=== PATIENT | female | born 1980 | race Caucasian/White ===

== ENCOUNTER 2017-06-22 01:01 | Inpatient (IN) ==
[2017-06-22] MEDS ORDERED: ACETAMINOPHEN 325 MG TABLET PO PRN (02:51)
[2017-06-22] MEDS: fentaNYL 50 MCG/HR PATCH TRANSDERM SCH (05:33)
[2017-06-22 06:49] LABS: Basophils % 0.3 % (0.0-0.8); Eosinophils # 0.1 10*3/uL (0.0-0.87); Eosinophils % 2.3 % (0.00-10.9); Hematocrit 23.7 VOL% (35.7-47.0); Hemoglobin 7.3 GM/DL (12.0-16.0); Immature Granulocytes % 1.3 %; Immature Granulocytes Absolute 0.05 #; Lymphocytes # 1.2 10*3/uL (1.4-4.0); Lymphocytes % 30.1 % (21.3-54.2); Mean Corpuscular HGB Conc 30.8 GM/DL (32-36); Mean Corpuscular Hemoglobin 26 PG (27-34); Monocytes # 0.4 10*3/uL (0.11-0.8); Monocytes % 10.7 % (1.7-12.7); Neutrophils # 2.2 10*3/uL (1.4-7.4); Neutrophils % 55.3 % (38.7-73.9); Red Blood Count 2.82 MC/CUMM (3.8-5.5); Red Cell Distribution Width 18.5 % (9.3-17.3); White Blood Count 3.9 T/CUMM (4-12)
[2017-06-22 07:21] LABS: Calcium 7.3 MG/DL (8.5-10.1); Osmolality,Calculated 279.4 MOS/KG (273-304); Potassium 3.8 MMOL/L (3.5-5.1)
[2017-06-22 07:56] LABS: Platelet Count 54 T/CUMM (130-400)
[2017-06-22] MEDS ORDERED: PIPERACILLIN/TAZOBACTAM 3,375 MG in SODIUM CHLORIDE 0.9% 100 ML IV SCH (08:00)
[2017-06-22 08:01] LABS: Band Neutrophils 5 % (0-10); Eosinophils 4 % (0-10); Hypochromasia 1+; Lymphocytes 24 % (20-55); Microcytosis 1+; Segmented Neutrophils 61 % (50-85); Total Cells Counted 100
[2017-06-22 08:02] LABS: Elliptocytes Few; Platelet Estimate Decreased; Tear Drop Cells Slight
[2017-06-22] MEDS ORDERED: GLATIRAMER ACETATE 40 MG SQ SCH (09:00)
[2017-06-22] MEDS: PANTOPRAZOLE 40 MG TABLET PO SCH (09:56)
[2017-06-22] MEDS ORDERED: SODIUM CHLORIDE 0.9% 1,000 ML IV PRN (10:27)
[2017-06-22] MEDS: MORPHINE 10 MG/5 ML UDCUP PO PRN ×2 (11:00→22:56)
[2017-06-22] MEDS ORDERED: DEXTROSE 10% 1,000 ML IV PRN (13:08)
[2017-06-22] MEDS ORDERED: DEXTROSE 50% 25 GM/50 ML VIAL IV PRN (13:08)
[2017-06-22] MEDS ORDERED: GLUCAGON 1 MG VIAL IM PRN (13:08)
[2017-06-22] MEDS: CHLORHEXIDINE 4% SOLN 118 ML BOTTLE TOP SCH (13:48)
[2017-06-22] MEDS: VANCOMYCIN INJ 750 MG in SODIUM CHLORIDE 0.9% 250 ML IV SCH (15:40)
[2017-06-22] MEDS: LIDOCAINE 5% PATCH TRANSDERM SCH (15:51)
[2017-06-22] MEDS ORDERED: TRACE ELEMENTS (5) 1 ML, MULTIVITAMIN INJ 10 ML in AMINO ACIDS/DEXT/LYTES 4.25-5% 2,000 ML IV SCH (17:00)
[2017-06-22] MEDS: CEFEPIME 2,000 MG in SYRINGE 1 EACH IV SCH (17:10)
[2017-06-22] MEDS: FAT EMULSION 20% 250 ML IV SCH (17:23)
[2017-06-22] MEDS ORDERED: GENTAMICIN INJ 100 MG in PREMIX 1 EACH IV ONE (21:00)
[2017-06-22] MEDS: GLATIRAMER ACETATE 40 MG SQ SCH (21:35)
[2017-06-23] MEDS: CEFEPIME 2,000 MG in SYRINGE 1 EACH IV SCH ×3 (01:20→16:41)
[2017-06-23] MEDS: VANCOMYCIN INJ 750 MG in SODIUM CHLORIDE 0.9% 250 ML IV SCH ×2 (04:51→16:46)
[2017-06-23 06:16] LABS: Basophils % 0.2 % (0.0-0.8); Eosinophils # 0.3 10*3/uL (0.0-0.87); Eosinophils % 4.6 % (0.00-10.9); Hematocrit 30.6 VOL% (35.7-47.0); Immature Granulocytes % 2.4 %; Immature Granulocytes Absolute 0.14 #; Lymphocytes # 1.8 10*3/uL (1.4-4.0); Lymphocytes % 29.9 % (21.3-54.2); Mean Corpuscular HGB Conc 32.4 GM/DL (32-36); Mean Corpuscular Hemoglobin 26 PG (27-34); Mean Corpuscular Volume 81.2 FL (87-102); Monocytes % 16.1 % (1.7-12.7); Neutrophils # 2.8 10*3/uL (1.4-7.4); Neutrophils % 46.8 % (38.7-73.9); Platelet Count 59 T/CUMM (130-400); Red Blood Count 3.77 MC/CUMM (3.8-5.5); Red Cell Distribution Width 17.7 % (9.3-17.3); White Blood Count 5.9 T/CUMM (4-12)
[2017-06-23 06:26] LABS: Hemoglobin 9.9 GM/DL (12.0-16.0)
[2017-06-23 06:54] LABS: Band Neutrophils 3 % (0-10); Burr Cells Slight; Eosinophils 7 % (0-10); Hypochromasia 1+; Lymphocytes 24 % (20-55); Ovalocytes Slight; Platelet Estimate Decreased; Segmented Neutrophils 54 % (50-85); Total Cells Counted 100
[2017-06-23 06:55] LABS: Giant Platelets Few; Microcytosis 1+
[2017-06-23 07:41] LABS: Prealbumin 4.3 MG/DL (20-40)
[2017-06-23 07:49] LABS: Albumin 1.8 G/DL (3.4-5.0); Bilirubin,Total 3.2 MG/DL (0.2-1.0); Calcium 7.8 MG/DL (8.5-10.1); Osmolality,Calculated 276.7 MOS/KG (273-304); Potassium 3.6 MMOL/L (3.5-5.1); Total Protein 5.2 G/DL (6.4-8.3)
[2017-06-23] MEDS: PANTOPRAZOLE 40 MG TABLET PO SCH (09:41)
[2017-06-23] MEDS: LIDOCAINE 5% PATCH TRANSDERM SCH (09:42)
[2017-06-23] MEDS: CHLORHEXIDINE 4% SOLN 118 ML BOTTLE TOP SCH (09:42)
[2017-06-23] MEDS: KETOROLAC 15 MG/1 ML VIAL IV PRN (13:18)
[2017-06-23] MEDS: FAT EMULSION 20% 250 ML IV SCH (14:32)
[2017-06-23] MEDS: MULTIVITAMIN IV SCH (16:55)
[2017-06-23] MEDS: MAGNESIUM SULF IV SCH (16:55)
[2017-06-23] MEDS: [UNRECOGNIZED DRUG - OTHER] IV SCH (16:55)
[2017-06-23] MEDS: MORPHINE 2 MG/1 ML SYRINGE IV PRN (22:47)
[2017-06-24] MEDS: CEFEPIME 2,000 MG in SYRINGE 1 EACH IV SCH ×3 (00:31→16:33)
[2017-06-24] MEDS: VANCOMYCIN INJ 750 MG in SODIUM CHLORIDE 0.9% 250 ML IV SCH ×2 (03:02→16:32)
[2017-06-24] MEDS: MORPHINE 2 MG/1 ML SYRINGE IV PRN ×2 (08:42→22:14)
[2017-06-24] MEDS: PANTOPRAZOLE 40 MG TABLET PO SCH (08:51)
[2017-06-24] MEDS: LIDOCAINE 5% PATCH TRANSDERM SCH (08:51)
[2017-06-24] MEDS: CHLORHEXIDINE 4% SOLN 118 ML BOTTLE TOP SCH (11:40)
[2017-06-24] MEDS: FAT EMULSION 20% 250 ML IV SCH (15:30)
[2017-06-24] MEDS: MAGNESIUM SULF IV SCH (15:31)
[2017-06-24] MEDS: MULTIVITAMIN IV SCH (15:31)
[2017-06-24] MEDS: [UNRECOGNIZED DRUG - OTHER] IV SCH (15:31)
[2017-06-25] MEDS: VANCOMYCIN INJ 750 MG in SODIUM CHLORIDE 0.9% 250 ML IV SCH ×3 (00:01→18:04)
[2017-06-25] MEDS: CEFEPIME 2,000 MG in SYRINGE 1 EACH IV SCH ×3 (01:33→18:04)
[2017-06-25] MEDS: PANTOPRAZOLE 40 MG TABLET PO SCH (09:54)
[2017-06-25] MEDS: fentaNYL 50 MCG/HR PATCH TRANSDERM SCH (09:54)
[2017-06-25] MEDS: LIDOCAINE 5% PATCH TRANSDERM SCH (09:57)
[2017-06-25] MEDS: GLATIRAMER ACETATE 40 MG SQ SCH (12:42)
[2017-06-25] MEDS: KETOROLAC 15 MG/1 ML VIAL IV PRN (14:39)
[2017-06-25] MEDS: FAT EMULSION 20% 250 ML IV SCH (14:39)
[2017-06-25] MEDS: MULTIVITAMIN IV SCH (15:30)
[2017-06-25] MEDS: [UNRECOGNIZED DRUG - OTHER] IV SCH (15:30)
[2017-06-25] MEDS: MAGNESIUM SULF IV SCH (15:30)
[2017-06-25] MEDS: CHLORHEXIDINE 4% SOLN 118 ML BOTTLE TOP SCH ×2 (18:14→23:20)
[2017-06-25] MEDS ORDERED: GLATIRAMER ACETATE 40 MG SQ SCH (21:00)
[2017-06-26] MEDS: CEFEPIME 2,000 MG in SYRINGE 1 EACH IV SCH ×2 (01:35→10:00)
[2017-06-26] MEDS: VANCOMYCIN INJ 750 MG in SODIUM CHLORIDE 0.9% 250 ML IV SCH ×2 (01:36→12:15)
[2017-06-26 05:15] LABS: Basophils % 0.5 % (0.0-0.8); Eosinophils # 0.3 10*3/uL (0.0-0.87); Eosinophils % 5.2 % (0.00-10.9); Hematocrit 33.6 VOL% (35.7-47.0); Hemoglobin 11.2 GM/DL (12.0-16.0); Immature Granulocytes % 4.1 %; Immature Granulocytes Absolute 0.25 #; Mean Corpuscular HGB Conc 33.3 GM/DL (32-36); Mean Corpuscular Hemoglobin 27 PG (27-34); Mean Corpuscular Volume 80.2 FL (87-102); Mean Platelet Volume 12.1 FL (9.6-12.0); Monocytes # 0.6 10*3/uL (0.11-0.8); Monocytes % 9.5 % (1.7-12.7); Neutrophils % 48.7 % (38.7-73.9); Platelet Count 192 T/CUMM (130-400); Red Blood Count 4.19 MC/CUMM (3.8-5.5); White Blood Count 6.1 T/CUMM (4-12)
[2017-06-26 06:07] LABS: Calcium 8.1 MG/DL (8.5-10.1); Osmolality,Calculated 278.7 MOS/KG (273-304); Potassium 4.3 MMOL/L (3.5-5.1)
[2017-06-26 06:08] LABS: Prealbumin 14.1 MG/DL (20-40)
[2017-06-26] MEDS: KETOROLAC 15 MG/1 ML VIAL IV PRN ×2 (09:55→17:48)
[2017-06-26] MEDS: PANTOPRAZOLE 40 MG TABLET PO SCH (09:59)
[2017-06-26] MEDS: LIDOCAINE 5% PATCH TRANSDERM SCH (10:00)
[2017-06-26] MEDS: CHLORHEXIDINE 4% SOLN 118 ML BOTTLE TOP SCH (10:03)
[2017-06-26] MEDS ORDERED: LEVOFLOXACIN 500 MG TABLET PO SCH (14:30)
[2017-06-26] MEDS: FAT EMULSION 20% 250 ML IV SCH (14:50)
[2017-06-26] MEDS: MAGNESIUM SULF IV SCH (15:49)
[2017-06-26] MEDS: [UNRECOGNIZED DRUG - OTHER] IV SCH (15:49)
[2017-06-26] MEDS: MULTIVITAMIN IV SCH (15:49)
[2017-06-26] MEDS: LEVOFLOXACIN INJ 500 MG in PREMIX 1 EACH IV SCH (15:50)
[2017-06-26] MEDS ORDERED: [UNRECOGNIZED DRUG - OTHER] IV SCH (17:00)
[2017-06-26] MEDS ORDERED: MULTIVITAMIN IV SCH (17:00)
[2017-06-26] MEDS ORDERED: MAGNESIUM SULF IV SCH (17:00)
[2017-06-26] MEDS: cefTRIAXone 2,000 MG in SYRINGE 1 EACH IV SCH (19:06)
[2017-06-27 08:02] LABS: Calcium 8.2 MG/DL (8.5-10.1); Osmolality,Calculated 277.8 MOS/KG (273-304); Potassium 3.9 MMOL/L (3.5-5.1)
[2017-06-27] MEDS: cefTRIAXone 2,000 MG in SYRINGE 1 EACH IV SCH (08:35)
[2017-06-27] MEDS: PANTOPRAZOLE 40 MG TABLET PO SCH (08:35)
[2017-06-27] MEDS: LEVOFLOXACIN INJ 500 MG in PREMIX 1 EACH IV SCH (08:36)
[2017-06-27] MEDS: CHLORHEXIDINE 4% SOLN 118 ML BOTTLE TOP SCH (08:37)
[2017-06-27] MEDS: LIDOCAINE 5% PATCH TRANSDERM SCH (08:37)
[2017-06-27 12:01] VITALS: BP 84/55
== END 2017-06-27 14:31 | disposition home health service (06) | DRG 314 ==
LOC: SUATTDRO 02:33 → N.2E 02:33
PROVIDERS: ADMIT Internal Medicine; ATTEND Internal Medicine Infectious Disease

== ENCOUNTER 2018-01-11 13:40 | Inpatient (IN) ==
[2018-01-11] MEDS ORDERED: guaiFENesin 200 MG/10 ML UDCUP PO PRN (17:06)
[2018-01-11] MEDS ORDERED: chlorproMAZINE INJ 50 MG in SODIUM CHLORIDE 0.9% 100 ML IV PRN (17:06)
[2018-01-11] MEDS ORDERED: ONDANSETRON 4 MG/2 ML VIAL IV PRN (17:06)
[2018-01-11] MEDS ORDERED: traMADol 50 MG TABLET PO PRN (17:06)
[2018-01-11] MEDS ORDERED: diphenhydrAMINE CAP 25 MG CAPSULE PO PRN (17:06)
[2018-01-11] MEDS ORDERED: ALUMINUM/MAGNES/SIMETH MAX STR 30 ML UDCUP PO PRN (17:06)
[2018-01-11] MEDS ORDERED: LOPERAMIDE 2 MG CAPSULE PO PRN ×2 (17:06)
[2018-01-11] MEDS ORDERED: ACETAMINOPHEN 325 MG TABLET PO PRN (17:06)
[2018-01-11] MEDS ORDERED: ALPRAZolam 0.25 MG TABLET PO PRN (17:06)
[2018-01-11] MEDS ORDERED: MYLANTA/LIDO VISC 2:1 300 ML BOTTLE SWISH/SWAL PRN (17:06)
[2018-01-11] MEDS ORDERED: LACTULOSE 20 GM/30 ML UDCUP PO PRN (17:06)
[2018-01-11] MEDS ORDERED: chlorproMAZINE INJ 25 MG in SODIUM CHLORIDE 0.9% 100 ML IV PRN (17:06)
[2018-01-11] MEDS ORDERED: MYLANTA/LIDO VISC 2:1 300 ML BOTTLE SWISH/SPIT PRN (17:06)
[2018-01-11] MEDS ORDERED: BENZTROPINE 2 MG/2 ML AMP IV PRN (17:06)
[2018-01-11] MEDS ORDERED: MAGNESIUM HYDROXIDE SUSP 30 ML UDCUP PO PRN (17:06)
[2018-01-11] MEDS ORDERED: ALBUTEROL/IPRATROPIUM 3 ML NEB RESP TX PRN (17:06)
[2018-01-11 17:44] LABS: Basophils % 0.1 % (0.0-0.8); Eosinophils % 0.1 % (0.00-10.9); Hematocrit 25.6 VOL% (35.7-47.0); Hemoglobin 8.2 GM/DL (12.0-16.0); Immature Granulocytes % 1.2 %; Immature Granulocytes Absolute 0.24 #; Lymphocytes # 0.7 10*3/uL (1.4-4.0); Lymphocytes % 3.6 % (21.3-54.2); Mean Corpuscular Hemoglobin 30 PG (27-34); Mean Corpuscular Volume 92.8 FL (87-102); Mean Platelet Volume 10.5 FL (9.6-12.0); Monocytes # 1.3 10*3/uL (0.11-0.8); Monocytes % 6.6 % (1.7-12.7); Neutrophils # 17.7 10*3/uL (1.4-7.4); Neutrophils % 88.4 % (38.7-73.9); Platelet Count 193 T/CUMM (130-400); Red Blood Count 2.76 MC/CUMM (3.8-5.5); Red Cell Distribution Width 16.7 % (9.3-17.3); White Blood Count 20.1 T/CUMM (4-12)
[2018-01-11] MEDS: LEVOFLOXACIN INJ 750 MG in PREMIX 1 EACH IV SCH (17:47)
[2018-01-11] MEDS ORDERED: MORPHINE 4 MG/1 ML VIAL IV PRN ×2 (18:04→18:12)
[2018-01-11 18:15] LABS: Uric Acid 0.4 MG/DL (2.6-6.0)
[2018-01-11 18:18] LABS: Albumin 1.5 G/DL (3.4-5.0); Bilirubin,Total 1.3 MG/DL (0.2-1.0); Osmolality,Calculated 271.7 MOS/KG (273-304); Potassium 4.2 MMOL/L (3.5-5.1); Total Protein 5.6 G/DL (6.4-8.3)
[2018-01-11] MEDS: MORPHINE 4 MG/1 ML VIAL IV PRN (19:26)
[2018-01-11] MEDS: BENZONATATE 100 MG CAPSULE PO SCH (20:26)
[2018-01-11] MEDS: ENOXAPARIN 40 MG/0.4 ML SYRINGE SUBCUT SCH (20:26)
[2018-01-11 20:35] LABS: Apearance,Urine CLEAR (Clear); Bilirubin,Urine Negative (Negative); Blood, Urine Negative (Negative); Glucose,Urine (UA) Negative (Negative); Ketones,Urine Negative (Negative); Mucus,Urine Occasional /LPF (Occasional); Nitrite,Urine Negative (Negative); Protein,Urine Negative; RBC,Urine 1 /HPF (0-4); Squamous Epithelial Cell,Urine Occasional /HPF (0-10); Urine Color Yellow (Yellow); Urine Specific Gravity 1.011 (1.001-1.035); Urine Urobilinogen < 2.0 EU/DL (0.2-1.0); WBC,Urine 5 /HPF (0-6)
[2018-01-11 21:10] LABS: Band Neutrophils 2 % (0-10); Lymphocytes 4 % (20-55); Platelet Estimate Normal; Segmented Neutrophils 90 % (50-85); Total Cells Counted 100
[2018-01-12] MEDS: MORPHINE 4 MG/1 ML VIAL IV PRN ×4 (02:26→21:45)
[2018-01-12 04:17] LABS: Basophils % 0.2 % (0.0-0.8); Eosinophils % 0.2 % (0.00-10.9); Hematocrit 23.2 VOL% (35.7-47.0); Hemoglobin 7.6 GM/DL (12.0-16.0); Immature Granulocytes % 1.5 %; Immature Granulocytes Absolute 0.25 #; Lymphocytes # 0.7 10*3/uL (1.4-4.0); Mean Corpuscular HGB Conc 32.8 GM/DL (32-36); Mean Corpuscular Hemoglobin 31 PG (27-34); Mean Corpuscular Volume 93.9 FL (87-102); Monocytes # 1.6 10*3/uL (0.11-0.8); Monocytes % 9.2 % (1.7-12.7); Neutrophils # 14.6 10*3/uL (1.4-7.4); Neutrophils % 84.9 % (38.7-73.9); Platelet Count 187 T/CUMM (130-400); Red Blood Count 2.47 MC/CUMM (3.8-5.5); Red Cell Distribution Width 17.2 % (9.3-17.3); White Blood Count 17.2 T/CUMM (4-12)
[2018-01-12 05:10] LABS: Band Neutrophils 6 % (0-10); Lymphocytes 10 % (20-55); Metamyelocytes 1 %; Segmented Neutrophils 77 % (50-85); Total Cells Counted 100
[2018-01-12 05:11] LABS: Anisocytosis 1+; Hypochromasia 2+; Macrocytosis 1+; Platelet Estimate Normal
[2018-01-12] MEDS: PROMETHAZINE INJ 25 MG in SODIUM CHLORIDE 0.9% 50 ML IV PRN ×3 (07:37→20:13)
[2018-01-12] MEDS ORDERED: SODIUM CHLORIDE 0.9% 1,000 ML IV PRN (08:17)
[2018-01-12] MEDS: BENZONATATE 100 MG CAPSULE PO SCH ×3 (08:32→20:06)
[2018-01-12] MEDS ORDERED: PANTOPRAZOLE 40 MG TABLET PO SCH (09:00)
[2018-01-12 09:35] LABS: Basophils % 0.1 % (0.0-0.8); Eosinophils % 0.1 % (0.00-10.9); Hematocrit 25.9 VOL% (35.7-47.0); Immature Granulocytes % 1.5 %; Immature Granulocytes Absolute 0.22 #; Lymphocytes # 0.8 10*3/uL (1.4-4.0); Lymphocytes % 5.1 % (21.3-54.2); Mean Corpuscular HGB Conc 30.9 GM/DL (32-36); Mean Corpuscular Hemoglobin 29 PG (27-34); Mean Corpuscular Volume 93.8 FL (87-102); Mean Platelet Volume 11.1 FL (9.6-12.0); Monocytes # 1.4 10*3/uL (0.11-0.8); Monocytes % 9.5 % (1.7-12.7); Neutrophils # 12.4 10*3/uL (1.4-7.4); Neutrophils % 83.7 % (38.7-73.9); Platelet Count 190 T/CUMM (130-400); Red Blood Count 2.76 MC/CUMM (3.8-5.5); Red Cell Distribution Width 16.8 % (9.3-17.3); White Blood Count 14.8 T/CUMM (4-12)
[2018-01-12 10:03] LABS: Albumin 1.4 G/DL (3.4-5.0); Bilirubin,Total 0.8 MG/DL (0.2-1.0); Calcium 7.3 MG/DL (8.5-10.1); Osmolality,Calculated 281.1 MOS/KG (273-304); Potassium 4.1 MMOL/L (3.5-5.1); Total Protein 5.6 G/DL (6.4-8.3)
[2018-01-12 10:10] LABS: Band Neutrophils 5 % (0-10); Lymphocytes 6 % (20-55); Segmented Neutrophils 87 % (50-85); Total Cells Counted 100
[2018-01-12 10:11] LABS: Anisocytosis 1+; Microcytosis 1+
[2018-01-12 10:12] LABS: Hypochromasia Slight
[2018-01-12 10:13] LABS: Ovalocytes Slight; Platelet Estimate Normal
[2018-01-12] MEDS ORDERED: ALBUTEROL 2.5 MG/3 ML NEB RESP TX PRN (16:46)
[2018-01-12] MEDS: PANTOPRAZOLE 40 MG VIAL IV SCH (17:52)
[2018-01-12] MEDS: LEVOFLOXACIN INJ 750 MG in PREMIX 1 EACH IV SCH (17:53)
[2018-01-12] MEDS: fentaNYL 50 MCG/HR PATCH TRANSDERM SCH (20:05)
[2018-01-12] MEDS: ENOXAPARIN 40 MG/0.4 ML SYRINGE SUBCUT SCH (20:06)
[2018-01-12] MEDS: TEMAZEPAM 7.5 MG CAPSULE PO PRN (21:48)
[2018-01-13] MEDS: MORPHINE 4 MG/1 ML VIAL IV PRN ×4 (04:17→20:57)
[2018-01-13 06:15] LABS: Basophils % 0.2 % (0.0-0.8); Eosinophils # 0.1 10*3/uL (0.0-0.87); Eosinophils % 0.5 % (0.00-10.9); Hematocrit 31.4 VOL% (35.7-47.0); Hemoglobin 10.3 GM/DL (12.0-16.0); Immature Granulocytes % 3.4 %; Immature Granulocytes Absolute 0.34 #; Lymphocytes # 1.1 10*3/uL (1.4-4.0); Lymphocytes % 11.4 % (21.3-54.2); Mean Corpuscular HGB Conc 32.8 GM/DL (32-36); Mean Corpuscular Hemoglobin 30 PG (27-34); Mean Corpuscular Volume 91.5 FL (87-102); Mean Platelet Volume 11.2 FL (9.6-12.0); Monocytes # 1.2 10*3/uL (0.11-0.8); Monocytes % 12.2 % (1.7-12.7); Neutrophils # 7.2 10*3/uL (1.4-7.4); Neutrophils % 72.3 % (38.7-73.9); Platelet Count 171 T/CUMM (130-400); Red Blood Count 3.43 MC/CUMM (3.8-5.5)
[2018-01-13 06:48] LABS: Albumin 1.4 G/DL (3.4-5.0); Calcium 7.7 MG/DL (8.5-10.1); Osmolality,Calculated 272.7 MOS/KG (273-304); Potassium 3.9 MMOL/L (3.5-5.1); Total Protein 5.7 G/DL (6.4-8.3)
[2018-01-13] MEDS: PROMETHAZINE INJ 25 MG in SODIUM CHLORIDE 0.9% 50 ML IV PRN ×3 (08:29→21:04)
[2018-01-13] MEDS: PANTOPRAZOLE 40 MG VIAL IV SCH (08:31)
[2018-01-13] MEDS: BENZONATATE 100 MG CAPSULE PO SCH ×3 (08:31→20:56)
[2018-01-13] MEDS: LEVOFLOXACIN INJ 750 MG in PREMIX 1 EACH IV SCH (17:36)
[2018-01-13] MEDS: ENOXAPARIN 40 MG/0.4 ML SYRINGE SUBCUT SCH (20:56)
[2018-01-13] MEDS: TEMAZEPAM 7.5 MG CAPSULE PO PRN (20:56)
[2018-01-14] MEDS: LORazepam 2 MG/1 ML VIAL IV PRN ×2 (03:25→22:11)
[2018-01-14 05:17] LABS: Basophils % 0.3 % (0.0-0.8); Eosinophils # 0.1 10*3/uL (0.0-0.87); Eosinophils % 0.5 % (0.00-10.9); Hematocrit 31.1 VOL% (35.7-47.0); Hemoglobin 10.3 GM/DL (12.0-16.0); Immature Granulocytes % 4.3 %; Immature Granulocytes Absolute 0.44 #; Lymphocytes % 9.7 % (21.3-54.2); Mean Corpuscular HGB Conc 33.1 GM/DL (32-36); Mean Corpuscular Hemoglobin 30 PG (27-34); Mean Corpuscular Volume 89.6 FL (87-102); Mean Platelet Volume 11.1 FL (9.6-12.0); Monocytes # 1.4 10*3/uL (0.11-0.8); Monocytes % 13.8 % (1.7-12.7); Neutrophils # 7.3 10*3/uL (1.4-7.4); Neutrophils % 71.4 % (38.7-73.9); Platelet Count 159 T/CUMM (130-400); Red Blood Count 3.47 MC/CUMM (3.8-5.5); Red Cell Distribution Width 15.5 % (9.3-17.3); White Blood Count 10.2 T/CUMM (4-12)
[2018-01-14 05:40] LABS: Albumin 1.3 G/DL (3.4-5.0); Bilirubin,Total 1.8 MG/DL (0.2-1.0); Calcium 7.4 MG/DL (8.5-10.1); Osmolality,Calculated 266.2 MOS/KG (273-304); Potassium 3.7 MMOL/L (3.5-5.1); Total Protein 5.8 G/DL (6.4-8.3)
[2018-01-14] MEDS: MORPHINE 4 MG/1 ML VIAL IV PRN ×3 (08:10→20:14)
[2018-01-14] MEDS: PANTOPRAZOLE 40 MG VIAL IV SCH (08:11)
[2018-01-14] MEDS: PROMETHAZINE INJ 25 MG in SODIUM CHLORIDE 0.9% 50 ML IV PRN ×3 (08:45→19:43)
[2018-01-14] MEDS: BENZONATATE 100 MG CAPSULE PO SCH ×3 (09:08→20:13)
[2018-01-14] MEDS: guaiFENesin 200 MG/10 ML UDCUP PO SCH ×3 (12:22→19:16)
[2018-01-14] MEDS: LEVOFLOXACIN INJ 750 MG in PREMIX 1 EACH IV SCH (17:39)
[2018-01-14] MEDS: ENOXAPARIN 40 MG/0.4 ML SYRINGE SUBCUT SCH (20:13)
[2018-01-15] MEDS: guaiFENesin 200 MG/10 ML UDCUP PO SCH ×5 (00:36→15:17)
[2018-01-15] MEDS: PROMETHAZINE INJ 25 MG in SODIUM CHLORIDE 0.9% 50 ML IV PRN ×3 (03:11→15:18)
[2018-01-15 05:20] LABS: Basophils % 0.3 % (0.0-0.8); Eosinophils # 0.1 10*3/uL (0.0-0.87); Eosinophils % 0.6 % (0.00-10.9); Hematocrit 31.9 VOL% (35.7-47.0); Immature Granulocytes % 3.2 %; Immature Granulocytes Absolute 0.34 #; Lymphocytes # 0.8 10*3/uL (1.4-4.0); Lymphocytes % 7.3 % (21.3-54.2); Mean Corpuscular HGB Conc 34.5 GM/DL (32-36); Mean Corpuscular Hemoglobin 30 PG (27-34); Mean Corpuscular Volume 87.2 FL (87-102); Mean Platelet Volume 11.7 FL (9.6-12.0); Monocytes # 0.9 10*3/uL (0.11-0.8); Monocytes % 8.6 % (1.7-12.7); Neutrophils # 8.4 10*3/uL (1.4-7.4); Platelet Count 168 T/CUMM (130-400); Red Blood Count 3.66 MC/CUMM (3.8-5.5); Red Cell Distribution Width 15.8 % (9.3-17.3); White Blood Count 10.5 T/CUMM (4-12)
[2018-01-15 05:53] LABS: Band Neutrophils 2 % (0-10); Calcium 7.7 MG/DL (8.5-10.1); Eosinophils 1 % (0-10); Hypochromasia 1+; Lymphocytes 8 % (20-55); Platelet Estimate Adequate; Segmented Neutrophils 83 % (50-85); Total Cells Counted 100
[2018-01-15 05:54] LABS: Microcytosis Slight
[2018-01-15] MEDS: MORPHINE 4 MG/1 ML VIAL IV PRN ×2 (06:08→11:11)
[2018-01-15] MEDS: PANTOPRAZOLE 40 MG VIAL IV SCH (08:24)
[2018-01-15] MEDS: BENZONATATE 100 MG CAPSULE PO SCH ×2 (08:25→15:17)
[2018-01-15] MEDS: fentaNYL 50 MCG/HR PATCH TRANSDERM SCH (08:26)
[2018-01-15] MEDS: LEVOFLOXACIN INJ 750 MG in PREMIX 1 EACH IV SCH (13:50)
[2018-01-15 16:01] VITALS: BP 90/69
== END 2018-01-15 16:26 | disposition home health service (06) | DRG 194 ==
LOC: SUATTDRO 15:43 → N.4E 15:43
PROVIDERS: ADMIT Internal Medicine; ATTEND Internal Medicine

== ENCOUNTER 2018-06-18 11:42 | Inpatient (IN) ==
[2018-06-18] MEDS ORDERED: ONDANSETRON 4 MG/2 ML VIAL IV STA (13:38)
[2018-06-18] MEDS ORDERED: MORPHINE 4 MG/1 ML VIAL IV STA ×2 (13:38→15:00)
[2018-06-18] MEDS ORDERED: ONDANSETRON 4 MG/2 ML VIAL ONE (13:39)
[2018-06-18] MEDS ORDERED: MORPHINE 4 MG/1 ML VIAL ONE (13:40)
[2018-06-18] MEDS ORDERED: SODIUM CHLORIDE 0.9% 1,350 ML IV STA (13:44)
[2018-06-18] MEDS ORDERED: LEVOFLOXACIN INJ 750 MG in PREMIX 1 EACH IV STA (13:52)
[2018-06-18] MEDS ORDERED: MEROPENEM 1,000 MG in SODIUM CHLORIDE 0.9% 100 ML IV STA (13:53)
[2018-06-18 14:53] LABS: Apearance,Urine CLEAR (Clear); Bilirubin,Urine Negative (Negative); Blood, Urine Small mg/dL (Negative); Glucose,Urine (UA) Negative (Negative); Ketones,Urine Negative (Negative); Nitrite,Urine Negative (Negative); Protein,Urine Negative; RBC,Urine 10 /HPF (0-4); Urine Color Amber (Yellow); Urine Specific Gravity 1.051 (1.001-1.035); Urine Urobilinogen < 2.0 EU/DL (0.2-1.0); WBC,Urine 5 /HPF (0-6)
[2018-06-18] MEDS ORDERED: FENTANYL SL PRN (15:00)
[2018-06-18] MEDS ORDERED: SODIUM CHLORIDE 0.9% 1,000 ML IV SCH (15:00)
[2018-06-18] MEDS ORDERED: MORPHINE 4 MG/1 ML VIAL IV PRN (15:00)
[2018-06-18] MEDS: SODIUM CHLORIDE 0.9% 1,000 ML IV SCH (15:29)
[2018-06-18] MEDS: fentaNYL 100 MCG/HR PATCH TRANSDERM SCH (16:02)
[2018-06-18] MEDS: fentaNYL 50 MCG/HR PATCH TRANSDERM SCH (16:14)
[2018-06-18] MEDS ORDERED: SODIUM CHLORIDE 0.9% 1,000 ML IV PRN (16:43)
[2018-06-18] MEDS: MORPHINE 10 MG/1 ML VIAL IV PRN ×4 (16:55→21:48)
[2018-06-18] MEDS ORDERED: MEROPENEM 1,000 MG in SODIUM CHLORIDE 0.9% 100 ML IV SCH (21:00)
[2018-06-18] MEDS: ENOXAPARIN 30 MG/0.3 ML SYRINGE SUBCUT SCH (21:27)
[2018-06-18] MEDS: ONDANSETRON 4 MG/2 ML VIAL IV PRN (21:28)
[2018-06-18] MEDS: LORazepam 2 MG/1 ML VIAL IV PRN (21:33)
[2018-06-19] MEDS: MORPHINE 10 MG/1 ML VIAL IV PRN ×5 (00:27→20:14)
[2018-06-19] MEDS: LORazepam 2 MG/1 ML VIAL IV PRN ×3 (00:30→21:10)
[2018-06-19] MEDS: ONDANSETRON 4 MG/2 ML VIAL IV PRN (03:13)
[2018-06-19] MEDS ORDERED: DEXTROSE 50% 25 GM/50 ML SYRINGE IV ONE (05:10)
[2018-06-19] MEDS: DEXTROSE 50% 25 GM/50 ML SYRINGE IV PRN ×2 (05:23→11:42)
[2018-06-19] MEDS ORDERED: DEXTROSE 5% NACL 0.45% 1,000 ML IV SCH ×2 (05:30→08:30)
[2018-06-19 06:05] LABS: Albumin 0.8 G/DL (3.4-5.0); Basophils % 0.2 % (0.0-0.8); Bilirubin,Total 2.9 MG/DL (0.2-1.0); Calcium 7.3 MG/DL (8.5-10.1); Eosinophils % 0.1 % (0.00-10.9); Hematocrit 34.4 VOL% (35.7-47.0); Hemoglobin 10.8 GM/DL (12.0-16.0); Immature Granulocytes Absolute 0.17 #; Lymphocytes # 0.9 10*3/uL (1.4-4.0); Lymphocytes % 5.1 % (21.3-54.2); Mean Corpuscular HGB Conc 31.4 GM/DL (32-36); Mean Corpuscular Hemoglobin 30 PG (27-34); Mean Corpuscular Volume 95.6 FL (87-102); Mean Platelet Volume 12.3 FL (9.6-12.0); Monocytes # 1.1 10*3/uL (0.11-0.8); Monocytes % 6.3 % (1.7-12.7); Neutrophils # 15.6 10*3/uL (1.4-7.4); Neutrophils % 87.3 % (38.7-73.9); Platelet Count 144 T/CUMM (130-400); Potassium 3.6 MMOL/L (3.5-5.1); Red Cell Distribution Width 22.6 % (9.3-17.3); Total Protein 4.7 G/DL (6.4-8.3); White Blood Count 17.9 T/CUMM (4-12)
[2018-06-19 06:32] LABS: Band Neutrophils 2 % (0-10); Lymphocytes 2 % (20-55); Nucleated Red Blood Cells 2 (0-5); Platelet Estimate Adequate; Segmented Neutrophils 94 % (50-85); Total Cells Counted 100
[2018-06-19 06:33] LABS: Hypochromasia Slight; Microcytosis Slight
[2018-06-19] MEDS: SODIUM CHLORIDE 0.9% 1,000 ML IV SCH ×2 (07:30→12:59)
[2018-06-19] MEDS ORDERED: LEVOFLOXACIN INJ 750 MG in PREMIX 1 EACH IV SCH (09:00)
[2018-06-19] MEDS: LEVOFLOXACIN INJ 250 MG in PREMIX 1 EACH IV SCH (09:38)
[2018-06-19] MEDS ORDERED: FLUCONAZOLE INJ 200 MG in PREMIX 1 EACH IV SCH (10:00)
[2018-06-19] MEDS: DEXTROSE 10% 500 ML IV SCH ×2 (13:01→18:15)
[2018-06-19] MEDS ORDERED: GLUCAGON 1 MG VIAL IM PRN (14:08)
[2018-06-19] MEDS ORDERED: DEXTROSE 50% 25 GM/50 ML SYRINGE IV PRN (14:08)
[2018-06-19] MEDS ORDERED: [UNRECOGNIZED DRUG - OTHER] SL PRN (14:43)
[2018-06-19] MEDS: FAT EMULSION 20% 250 ML IV SCH (16:00)
[2018-06-19] MEDS ORDERED: DEXTROSE 10% 1,000 ML IV PRN (17:00)
[2018-06-19] MEDS: MULTIVITAMIN INJ 10 ML in AMINO ACIDS/DEXT/LYTES 5-15% 2,000 ML IV SCH (18:05)
[2018-06-19] MEDS: SODIUM HYPOCHLORITE 0.25% IRRIG 473 ML BOTTLE TOP SCH (18:14)
[2018-06-19] MEDS: ENOXAPARIN 30 MG/0.3 ML SYRINGE SUBCUT SCH (20:13)
[2018-06-19] MEDS: COPAXONE SUBCUT SCH (21:14)
[2018-06-19] MEDS ORDERED: ACETAMINOPHEN 325 MG TABLET PO SCH (23:53)
[2018-06-20] MEDS: MORPHINE 10 MG/1 ML VIAL IV PRN ×7 (00:11→20:45)
[2018-06-20] MEDS ORDERED: ACETAMINOPHEN 325 MG TABLET PO PRN (00:16)
[2018-06-20 05:51] LABS: Basophils # 0.1 10*3/uL (0.0-0.2); Basophils % 0.3 % (0.0-0.8); Eosinophils % 0.1 % (0.00-10.9); Hematocrit 32.2 VOL% (35.7-47.0); Hemoglobin 9.8 GM/DL (12.0-16.0); Immature Granulocytes % 1.5 %; Immature Granulocytes Absolute 0.54 #; Lymphocytes # 1.1 10*3/uL (1.4-4.0); Lymphocytes % 3.1 % (21.3-54.2); Mean Corpuscular HGB Conc 30.4 GM/DL (32-36); Mean Corpuscular Hemoglobin 30 PG (27-34); Mean Corpuscular Volume 98.2 FL (87-102); Mean Platelet Volume 12.8 FL (9.6-12.0); Monocytes % 2.8 % (1.7-12.7); NRBC # 0.09 10*3/uL; Neutrophils # 32.8 10*3/uL (1.4-7.4); Neutrophils % 92.2 % (38.7-73.9); Platelet Count 174 T/CUMM (130-400); Red Blood Count 3.28 MC/CUMM (3.8-5.5); Red Cell Distribution Width 22.7 % (9.3-17.3); White Blood Count 35.6 T/CUMM (4-12)
[2018-06-20 06:11] LABS: Calcium 7.3 MG/DL (8.5-10.1); Osmolality,Calculated 290.8 MOS/KG (273-304); Potassium 3.2 MMOL/L (3.5-5.1)
[2018-06-20 06:29] LABS: Band Neutrophils 4 % (0-10); Hypochromasia 1+; Lymphocytes 4 % (20-55); Ovalocytes Slight; Platelet Estimate Adequate; Segmented Neutrophils 91 % (50-85); Total Cells Counted 100
[2018-06-20 06:30] LABS: Microcytosis Slight
[2018-06-20 06:36] LABS: Prealbumin 3.2 MG/DL (20-40)
[2018-06-20] MEDS: DEXTROSE 10% 500 ML IV SCH ×4 (07:43→18:18)
[2018-06-20] MEDS: MEROPENEM 500 MG in SODIUM CHLORIDE 0.9% 100 ML IV SCH ×3 (08:04→23:53)
[2018-06-20] MEDS: LEVOFLOXACIN INJ 250 MG in PREMIX 1 EACH IV SCH (08:53)
[2018-06-20] MEDS ORDERED: FLUCONAZOLE INJ 800 MG in PREMIX 1 EACH IV ONE (10:30)
[2018-06-20] MEDS ORDERED: SODIUM CHLORIDE 0.45% 500 ML IV ONE (10:42)
[2018-06-20] MEDS: SODIUM HYPOCHLORITE 0.25% IRRIG 473 ML BOTTLE TOP SCH (15:20)
[2018-06-20] MEDS: FAT EMULSION 20% 250 ML IV SCH (15:39)
[2018-06-20] MEDS: SODIUM CHLORIDE 0.45% 1,000 ML IV SCH ×3 (15:59→20:03)
[2018-06-20] MEDS: MULTIVITAMIN INJ 10 ML in AMINO ACIDS/DEXT/LYTES 5-15% 2,000 ML IV SCH (19:24)
[2018-06-20] MEDS: ENOXAPARIN 30 MG/0.3 ML SYRINGE SUBCUT SCH (20:48)
[2018-06-21] MEDS: MORPHINE 10 MG/1 ML VIAL IV PRN ×8 (00:21→23:46)
[2018-06-21] MEDS: DEXTROSE 10% 500 ML IV SCH (03:10)
[2018-06-21] MEDS: SODIUM CHLORIDE 0.45% 1,000 ML IV SCH (03:12)
[2018-06-21 04:43] LABS: Basophils # 0.1 10*3/uL (0.0-0.2); Basophils % 0.2 % (0.0-0.8); Eosinophils % 0.1 % (0.00-10.9); Hematocrit 27.8 VOL% (35.7-47.0); Hemoglobin 8.4 GM/DL (12.0-16.0); Immature Granulocytes % 2.4 %; Immature Granulocytes Absolute 0.75 #; Lymphocytes # 1.2 10*3/uL (1.4-4.0); Mean Corpuscular HGB Conc 30.2 GM/DL (32-36); Mean Corpuscular Hemoglobin 30 PG (27-34); Mean Corpuscular Volume 100.4 FL (87-102); Mean Platelet Volume 12.6 FL (9.6-12.0); Monocytes # 0.8 10*3/uL (0.11-0.8); Monocytes % 2.7 % (1.7-12.7); NRBC # 0.06 10*3/uL; Neutrophils # 27.9 10*3/uL (1.4-7.4); Neutrophils % 90.6 % (38.7-73.9); Platelet Count 117 T/CUMM (130-400); Red Blood Count 2.77 MC/CUMM (3.8-5.5); Red Cell Distribution Width 20.8 % (9.3-17.3); White Blood Count 30.8 T/CUMM (4-12)
[2018-06-21 05:04] LABS: Band Neutrophils 11 % (0-10); Lymphocytes 4 % (20-55); Platelet Estimate Decreased; Segmented Neutrophils 83 % (50-85); Total Cells Counted 100
[2018-06-21 05:05] LABS: Hypochromasia 1+; Microcytosis Slight
[2018-06-21 05:13] LABS: Calcium 6.9 MG/DL (8.5-10.1); Osmolality,Calculated 287.4 MOS/KG (273-304); Potassium 2.9 MMOL/L (3.5-5.1)
[2018-06-21] MEDS: fentaNYL 100 MCG/HR PATCH TRANSDERM SCH (08:25)
[2018-06-21] MEDS: MEROPENEM 500 MG in SODIUM CHLORIDE 0.9% 100 ML IV SCH ×3 (08:25→23:52)
[2018-06-21] MEDS: fentaNYL 50 MCG/HR PATCH TRANSDERM SCH (08:25)
[2018-06-21] MEDS: COPAXONE SUBCUT SCH (08:35)
[2018-06-21] MEDS: SODIUM HYPOCHLORITE 0.25% IRRIG 473 ML BOTTLE TOP SCH (09:53)
[2018-06-21] MEDS: VORICONAZOLE INJ 200 MG in SODIUM CHLORIDE 0.9% 100 ML IV SCH ×2 (09:54→20:47)
[2018-06-21] MEDS ORDERED: FLUCONAZOLE INJ 400 MG in PREMIX 1 EACH IV SCH (10:00)
[2018-06-21] MEDS ORDERED: MULTIVITAMIN INJ 10 ML, TRACE ELEMENTS (5) 1 ML in AMINO ACIDS/DEXT/LYTES 5-15% 2,000 ML IV SCH (17:00)
[2018-06-21] MEDS: FAT EMULSION 20% 250 ML IV SCH (17:41)
[2018-06-21] MEDS ORDERED: POTASSIUM CHLORIDE RIDER 20 MEQ in PREMIX 1 EACH IV PRN (18:34)
[2018-06-21] MEDS: POTASSIUM CHLORIDE RIDER 10 MEQ in PREMIX 1 EACH IV PRN (19:36)
[2018-06-21] MEDS ORDERED: POTASSIUM CHLORIDE INJ 40 MEQ in SODIUM CHLORIDE 0.9% 500 ML IV ONE (20:00)
[2018-06-21] MEDS: LORazepam 2 MG/1 ML VIAL IV PRN (23:49)
[2018-06-22] MEDS: MORPHINE 10 MG/1 ML VIAL IV PRN ×4 (03:42→19:35)
[2018-06-22 05:04] LABS: Osmolality,Calculated 278.2 MOS/KG (273-304); Potassium 3.3 MMOL/L (3.5-5.1)
[2018-06-22 05:08] LABS: Basophils % 0.2 % (0.0-0.8); Eosinophils # 0.1 10*3/uL (0.0-0.87); Eosinophils % 0.5 % (0.00-10.9); Hematocrit 29.3 VOL% (35.7-47.0); Immature Granulocytes % 2.5 %; Immature Granulocytes Absolute 0.53 #; Lymphocytes # 1.2 10*3/uL (1.4-4.0); Lymphocytes % 5.5 % (21.3-54.2); Mean Corpuscular HGB Conc 30.7 GM/DL (32-36); Mean Corpuscular Hemoglobin 31 PG (27-34); Mean Corpuscular Volume 99.3 FL (87-102); Mean Platelet Volume 13.1 FL (9.6-12.0); Monocytes % 4.7 % (1.7-12.7); NRBC # 0.02 10*3/uL; Neutrophils # 18.1 10*3/uL (1.4-7.4); Neutrophils % 86.6 % (38.7-73.9); Red Blood Count 2.95 MC/CUMM (3.8-5.5)
[2018-06-22 05:11] LABS: White Blood Count 20.9 T/CUMM (4-12)
[2018-06-22 05:12] LABS: Platelet Count 94 T/CUMM (130-400)
[2018-06-22 05:21] LABS: Band Neutrophils 2 % (0-10); Lymphocytes 3 % (20-55); Platelet Estimate Decreased; Segmented Neutrophils 95 % (50-85); Total Cells Counted 100
[2018-06-22 05:22] LABS: Polychromasia Few
[2018-06-22] MEDS: MEROPENEM 500 MG in SODIUM CHLORIDE 0.9% 100 ML IV SCH ×2 (08:52→16:07)
[2018-06-22] MEDS: SODIUM HYPOCHLORITE 0.25% IRRIG 473 ML BOTTLE TOP SCH (08:53)
[2018-06-22] MEDS: VORICONAZOLE INJ 200 MG in SODIUM CHLORIDE 0.9% 100 ML IV SCH ×2 (10:21→20:52)
[2018-06-22] MEDS: POTASSIUM CHLORIDE RIDER 10 MEQ in PREMIX 1 EACH IV PRN ×3 (17:42→22:59)
[2018-06-22] MEDS: MULTIVITAMIN INJ 10 ML in AMINO ACIDS/DEXT/LYTES 4.25-5% 2,000 ML IV SCH (17:42)
[2018-06-22] MEDS: FAT EMULSION 20% 250 ML IV SCH (17:43)
[2018-06-22] MEDS: LORazepam 2 MG/1 ML VIAL IV PRN (20:53)
[2018-06-23] MEDS: MEROPENEM 500 MG in SODIUM CHLORIDE 0.9% 100 ML IV SCH ×3 (00:06→14:59)
[2018-06-23] MEDS: POTASSIUM CHLORIDE RIDER 10 MEQ in PREMIX 1 EACH IV PRN (00:46)
[2018-06-23] MEDS: MORPHINE 10 MG/1 ML VIAL IV PRN ×5 (03:41→19:40)
[2018-06-23 04:28] LABS: Basophils % 0.2 % (0.0-0.8); Eosinophils # 0.2 10*3/uL (0.0-0.87); Hematocrit 28.2 VOL% (35.7-47.0); Hemoglobin 8.8 GM/DL (12.0-16.0); Immature Granulocytes % 2.2 %; Immature Granulocytes Absolute 0.45 #; Lymphocytes # 1.3 10*3/uL (1.4-4.0); Lymphocytes % 6.5 % (21.3-54.2); Mean Corpuscular HGB Conc 31.2 GM/DL (32-36); Mean Corpuscular Hemoglobin 30 PG (27-34); Mean Corpuscular Volume 97.2 FL (87-102); Mean Platelet Volume 12.9 FL (9.6-12.0); Monocytes # 1.4 10*3/uL (0.11-0.8); Monocytes % 6.9 % (1.7-12.7); Neutrophils # 16.8 10*3/uL (1.4-7.4); Neutrophils % 83.2 % (38.7-73.9); Red Cell Distribution Width 19.9 % (9.3-17.3); White Blood Count 20.2 T/CUMM (4-12)
[2018-06-23 04:30] LABS: Platelet Count 81 T/CUMM (130-400)
[2018-06-23 05:00] LABS: Band Neutrophils 3 % (0-10); Hypochromasia 1+; Lymphocytes 5 % (20-55); Microcytosis Slight; Platelet Estimate Decreased; Segmented Neutrophils 84 % (50-85); Total Cells Counted 100
[2018-06-23] MEDS: SODIUM HYPOCHLORITE 0.25% IRRIG 473 ML BOTTLE TOP SCH (09:41)
[2018-06-23] MEDS: VORICONAZOLE INJ 200 MG in SODIUM CHLORIDE 0.9% 100 ML IV SCH ×2 (10:26→20:48)
[2018-06-23] MEDS: MULTIVITAMIN INJ 10 ML in AMINO ACIDS/DEXT/LYTES 4.25-5% 2,000 ML IV SCH (17:46)
[2018-06-23] MEDS: FAT EMULSION 20% 250 ML IV SCH (17:48)
[2018-06-23] MEDS: LORazepam 2 MG/1 ML VIAL IV PRN (22:27)
[2018-06-24] MEDS: MEROPENEM 500 MG in SODIUM CHLORIDE 0.9% 100 ML IV SCH ×4 (00:18→23:22)
[2018-06-24] MEDS: MORPHINE 10 MG/1 ML VIAL IV PRN ×2 (07:57→19:15)
[2018-06-24] MEDS: fentaNYL 100 MCG/HR PATCH TRANSDERM SCH (10:33)
[2018-06-24] MEDS: fentaNYL 50 MCG/HR PATCH TRANSDERM SCH (10:33)
[2018-06-24] MEDS: VORICONAZOLE INJ 200 MG in SODIUM CHLORIDE 0.9% 100 ML IV SCH ×2 (10:34→20:32)
[2018-06-24] MEDS: SODIUM HYPOCHLORITE 0.25% IRRIG 473 ML BOTTLE TOP SCH (10:34)
[2018-06-24] MEDS: COPAXONE SUBCUT SCH (10:34)
[2018-06-24] MEDS: MULTIVITAMIN INJ 10 ML in AMINO ACIDS/DEXT/LYTES 4.25-5% 2,000 ML IV SCH (17:39)
[2018-06-24] MEDS: FAT EMULSION 20% 250 ML IV SCH (17:40)
[2018-06-24] MEDS: LORazepam 2 MG/1 ML VIAL IV PRN (21:10)
[2018-06-25] MEDS: MORPHINE 10 MG/1 ML VIAL IV PRN (01:27)
[2018-06-25] MEDS: LORazepam 2 MG/1 ML VIAL IV PRN ×2 (01:45→12:25)
[2018-06-25] MEDS: MEROPENEM 500 MG in SODIUM CHLORIDE 0.9% 100 ML IV SCH ×2 (08:32→16:50)
[2018-06-25] MEDS: VORICONAZOLE INJ 200 MG in SODIUM CHLORIDE 0.9% 100 ML IV SCH ×2 (09:40→22:05)
[2018-06-25] MEDS: SODIUM HYPOCHLORITE 0.25% IRRIG 473 ML BOTTLE TOP SCH (09:42)
[2018-06-25] MEDS: FAT EMULSION 20% 250 ML IV SCH (16:49)
[2018-06-25] MEDS: MULTIVITAMIN INJ 10 ML in AMINO ACIDS/DEXT/LYTES 4.25-5% 2,000 ML IV SCH (18:30)
[2018-06-26] MEDS: MEROPENEM 500 MG in SODIUM CHLORIDE 0.9% 100 ML IV SCH ×3 (00:18→16:42)
[2018-06-26] MEDS: MORPHINE 10 MG/1 ML VIAL IV PRN ×3 (08:54→21:50)
[2018-06-26] MEDS: VORICONAZOLE INJ 200 MG in SODIUM CHLORIDE 0.9% 100 ML IV SCH ×2 (09:20→21:38)
[2018-06-26] MEDS: SODIUM HYPOCHLORITE 0.25% IRRIG 473 ML BOTTLE TOP SCH (09:21)
[2018-06-26] MEDS: FAT EMULSION 20% 250 ML IV SCH (16:46)
[2018-06-26] MEDS: MULTIVITAMIN INJ 10 ML in AMINO ACIDS/DEXT/LYTES 4.25-5% 2,000 ML IV SCH (18:02)
[2018-06-27] MEDS: MEROPENEM 500 MG in SODIUM CHLORIDE 0.9% 100 ML IV SCH ×3 (00:45→17:16)
[2018-06-27] MEDS: MORPHINE 10 MG/1 ML VIAL IV PRN ×3 (01:51→21:10)
[2018-06-27] MEDS: ONDANSETRON 4 MG/2 ML VIAL IV PRN (03:03)
[2018-06-27 05:41] LABS: Albumin 0.6 G/DL (3.4-5.0); Calcium 7.6 MG/DL (8.5-10.1); Osmolality,Calculated 288.7 MOS/KG (273-304); Total Protein 4.9 G/DL (6.4-8.3)
[2018-06-27 05:52] LABS: Basophils % 0.3 % (0.0-0.8); Eosinophils # 0.1 10*3/uL (0.0-0.87); Eosinophils % 0.7 % (0.00-10.9); Hematocrit 26.4 VOL% (35.7-47.0); Immature Granulocytes % 2.6 %; Immature Granulocytes Absolute 0.34 #; Lymphocytes # 1.1 10*3/uL (1.4-4.0); Lymphocytes % 8.1 % (21.3-54.2); Mean Corpuscular HGB Conc 30.3 GM/DL (32-36); Mean Corpuscular Hemoglobin 31 PG (27-34); Mean Corpuscular Volume 100.8 FL (87-102); Mean Platelet Volume 12.4 FL (9.6-12.0); Monocytes % 7.5 % (1.7-12.7); Neutrophils # 10.7 10*3/uL (1.4-7.4); Neutrophils % 80.8 % (38.7-73.9); Platelet Count 169 T/CUMM (130-400); Red Blood Count 2.62 MC/CUMM (3.8-5.5); Red Cell Distribution Width 19.6 % (9.3-17.3); White Blood Count 13.3 T/CUMM (4-12)
[2018-06-27] MEDS: SODIUM HYPOCHLORITE 0.25% IRRIG 473 ML BOTTLE TOP SCH (09:27)
[2018-06-27] MEDS: VORICONAZOLE INJ 200 MG in SODIUM CHLORIDE 0.9% 100 ML IV SCH ×2 (11:34→21:10)
[2018-06-27] MEDS: FAT EMULSION 20% 250 ML IV SCH (17:16)
[2018-06-27] MEDS: MULTIVITAMIN INJ 10 ML in AMINO ACIDS/DEXT/LYTES 4.25-5% 2,000 ML IV SCH (17:17)
[2018-06-28] MEDS: MORPHINE 10 MG/1 ML VIAL IV PRN ×2 (02:04→12:52)
[2018-06-28] MEDS: VORICONAZOLE INJ 200 MG in SODIUM CHLORIDE 0.9% 100 ML IV SCH (08:49)
[2018-06-28] MEDS: SODIUM HYPOCHLORITE 0.25% IRRIG 473 ML BOTTLE TOP SCH (08:50)
[2018-06-28] MEDS: MULTIVITAMIN INJ 10 ML in AMINO ACIDS/DEXT/LYTES 4.25-5% 2,000 ML IV SCH (17:07)
[2018-06-28] MEDS: FAT EMULSION 20% 250 ML IV SCH (17:07)
[2018-06-28] MEDS: COPAXONE SUBCUT SCH (17:08)
[2018-06-28] MEDS: LORazepam 2 MG/1 ML VIAL IV PRN (21:33)
[2018-06-29] MEDS: LORazepam 2 MG/1 ML VIAL IV PRN ×2 (02:20→23:14)
[2018-06-29] MEDS: MORPHINE 10 MG/1 ML VIAL IV PRN ×3 (06:23→20:46)
[2018-06-29] MEDS: COPAXONE SUBCUT SCH (08:12)
[2018-06-29] MEDS: SODIUM HYPOCHLORITE 0.25% IRRIG 473 ML BOTTLE TOP SCH (09:10)
[2018-06-29] MEDS: MULTIVITAMIN INJ 10 ML in AMINO ACIDS/DEXT/LYTES 4.25-5% 2,000 ML IV SCH (16:22)
[2018-06-29] MEDS: FAT EMULSION 20% 250 ML IV SCH (16:23)
[2018-06-30] MEDS: MORPHINE 10 MG/1 ML VIAL IV PRN ×3 (01:25→22:25)
[2018-06-30] MEDS: SODIUM HYPOCHLORITE 0.25% IRRIG 473 ML BOTTLE TOP SCH (10:13)
[2018-06-30] MEDS: LORazepam 2 MG/1 ML VIAL IV PRN (11:50)
[2018-06-30] MEDS: FAT EMULSION 20% 250 ML IV SCH (17:26)
[2018-06-30] MEDS: VORICONAZOLE INJ 200 MG in SODIUM CHLORIDE 0.9% 100 ML IV SCH (17:26)
[2018-06-30] MEDS: MULTIVITAMIN INJ 10 ML in AMINO ACIDS/DEXT/LYTES 4.25-5% 2,000 ML IV SCH (17:26)
[2018-06-30] MEDS ORDERED: fentaNYL 100 MCG/HR PATCH TRANSDERM SCH (23:00)
[2018-06-30] MEDS ORDERED: fentaNYL 50 MCG/HR PATCH TRANSDERM SCH (23:00)
[2018-07-01] MEDS: MORPHINE 10 MG/1 ML VIAL IV PRN ×4 (01:44→22:18)
[2018-07-01] MEDS: VORICONAZOLE INJ 200 MG in SODIUM CHLORIDE 0.9% 100 ML IV SCH ×2 (05:18→18:19)
[2018-07-01] MEDS ORDERED: POLYETHYLENE GLYCOL POWDER 17 GM PACK PO PRN (11:27)
[2018-07-01] MEDS: SODIUM HYPOCHLORITE 0.25% IRRIG 473 ML BOTTLE TOP SCH (13:07)
[2018-07-01] MEDS: COPAXONE SUBCUT SCH (13:08)
[2018-07-01] MEDS: FAT EMULSION 20% 250 ML IV SCH (18:19)
[2018-07-01] MEDS: MULTIVITAMIN INJ 10 ML in AMINO ACIDS/DEXT/LYTES 4.25-5% 2,000 ML IV SCH (18:20)
[2018-07-01] MEDS ORDERED: GLATIRAMER ACETATE 20 MG/ML SUBCUT SCH ×2 (21:00→23:02)
[2018-07-02] MEDS: MORPHINE 10 MG/1 ML VIAL IV PRN ×3 (00:03→09:03)
[2018-07-02] MEDS: VORICONAZOLE INJ 200 MG in SODIUM CHLORIDE 0.9% 100 ML IV SCH ×2 (04:14→16:37)
[2018-07-02] MEDS: SODIUM HYPOCHLORITE 0.25% IRRIG 473 ML BOTTLE TOP SCH (09:04)
[2018-07-02 15:54] VITALS: BP 76/49
[2018-07-02] MEDS: MULTIVITAMIN INJ 10 ML in AMINO ACIDS/DEXT/LYTES 4.25-5% 2,000 ML IV SCH (16:37)
[2018-07-02] MEDS: FAT EMULSION 20% 250 ML IV SCH (16:37)
== END 2018-07-02 18:05 | disposition hospice, home (50) | DRG 871 ==
LOC: N.ED 11:42 → SUATTDRO 13:41 → N.EDINP 13:41 → N.ICU 15:05 → N.4E 06-19 17:15
PROVIDERS: ADMIT Internal Medicine; ATTEND Internal Medicine
PROC: IRTHORA (2018-06-21 14:05)